=== PATIENT | female | born 1985 | race Caucasian/White ===

== ENCOUNTER 2023-01-19 11:20 | Outpatient (REF) | payer OTHER, SELFPAY ==
[2023-01-19 13:44] LABS: MANUAL DIFF FLAG NO
[2023-01-19 13:48] LABS: Basophils Percent Auto 0.3 % (0-2); Eosinophils Absolute Auto 0.1 X10*3/uL (0.0-0.4); Eosinophils Percent Auto 1.1 % (0-4); Hematocrit 37.9 % (37.0-47.0); Hemoglobin 12.5 g/dl (12.0-16.0); Imm Gran Abs Auto 0.02 X10*3/uL (0.00-0.03); Imm Gran Pct Auto 0.3 % (0.0-0.4); Lymphocytes Absolute Auto 1.5 X10*3/uL (1.2-4.9); Lymphocytes Percent Auto 21.2 % (20-40); Mean Corpuscular Hemoglobin 28.5 pg (27.0-33.0); Mean Corpuscular Volume 86.5 fL (80.0-98.0); Mean Platelet Volume 12.4 fL (9.4-12.3); Monocytes Percent Auto 13.4 % (2-11); Neutrophils Absolute Auto 4.6 x10*3/uL (2.0-8.3); Neutrophils Percent Auto 63.7 % (45-73); Platelet Count 237 X10*3/uL (160-400); Red Blood Count 4.38 X10*6/uL (4.20-5.50); Red Cell Distribution Width 12.4 % (11.0-16.0); White Blood Count 7.2 X10*3/uL (4.8-10.8)
[2023-01-19 13:51] LABS: Appearance Urine Clear; Color Urine Yellow; Glucose Urine UA Negative (Negative); Leukocyte Esterase Urine Trace (Negative); Nitrite Urine Negative (Negative); Specific Gravity - Urine 1.015 (1.005-1.025); UMIC TRIGGER UA YES; Urine Blood Negative (Negative); Urine Ketones Negative (Negative); Urine Protein Negative (Neg-Trace)
[2023-01-19 13:53] LABS: Bacteria Urine None Seen (None Seen); Hyaline Casts Urine 0-2 /LPF (0-2); RBC Urine 0-2 /HPF (0-2); WBC Urine 0-5 /HPF (0-5)
[2023-01-19 14:01] LABS: Estimated Average Glucose 103 mg/dL; Hemoglobin A1c % 5.2 %
[2023-01-19 14:06] LABS: Alanine Aminotransferase 40 U/L (0-31); Albumin Level 3.8 g/dL (3.5-5.0); Alkaline Phosphatase 96 U/L (39-117); Anion Gap 12 (12-20); Aspartate Amino Transferase 31 U/L (5-31); Bilirubin Total 0.6 mg/dL (0.0-1.0); Blood Urea Nitrogen 11 mg/dL (9-16); Calcium 9.6 mg/dL (8.4-10.2); Carbon Dioxide 26 mmol/L (22-29); Chloride 106 mmol/L (96-108); Cholesterol 116 mg/dL; Estimated Glomerular Filt Rate > 60; Glucose Fasting 96 mg/dL (60-99); HDL Cholesterol 55 mg/dL; LDL Cholesterol Calculated 50 mg/dl; Potassium 4.6 mmol/L (3.3-5.1); Sodium 139 mmol/L (135-145); Total Protein 6.9 g/dL (6.5-8.0); Triglycerides 56 mg/dL
[2023-01-19 14:24] LABS: Insulin 7 uU/mL (2-29); TSH reflex Free T4 < 0.01 uIU/mL (0.32-4.0)
[2023-01-19 14:58] LABS: Free T4 (Free Thyroxine) 2.63 ng/dL (0.71-1.85)
== END 2023-01-19 11:21 | disposition home or self-care (01) ==
LOC: HO.HMGCLDS 11:20
PROVIDERS: PCP Internal Medicine; Visit Provider Internal Medicine
DX: E16.2 Hypoglycemia, unspecified (principal); R19.00 Intra-abdominal and pelvic swelling, mass and lump, unspecified site
CPT/HCPCS: 36415; 80053; 80061; 81001; 83036; 83525; 84439; 84443; 85025

== ENCOUNTER 2023-01-26 08:32 | Outpatient (REF) | payer OTHER, SELFPAY ==
--- NOTE | ~2023-01-26 | US_ITS ---
EXAMINATION: US RETROPERITONEAL LIMITED (AORTA) CLINICAL INFORMATION: Pulsatile mass. COMPARISON: None available. TECHNIQUE: Veras-scale, color Doppler and spectral Doppler evaluation of the abdominal aorta. FINDINGS: The aorta is normal. The measurements of the aorta in maximum AP and transverse dimensions respectively are as follows: Proximal: 2.0 x 2.0 cm. Mid: 1.7 x 1.9 cm. Distal: 1.4 x 1.6 cm. PSV: 154 cm/s. The measurements of the common iliac arteries in maximum AP and TRV dimensions are as follows: Right Common Iliac Artery: 1.0 x 1.1 cm. Left Common Iliac Artery: 0.9 x 1.0 cm. US/US abdominal aortic aneurysm IMPRESSION: Negative for abdominal aortic aneurysm.
== END 2023-01-26 08:33 | disposition home or self-care (01) ==
LOC: HO.HMGCX 08:32
PROVIDERS: PCP Internal Medicine; Visit Provider Internal Medicine
DX: R19.00 Intra-abdominal and pelvic swelling, mass and lump, unspecified site (principal)
CPT/HCPCS: 76706

== ENCOUNTER → 2023-02-17 08:33 | Outpatient (BNVA) | payer OTHER, SELFPAY | PROVIDERS: PCP Internal Medicine; Visit Provider Internal Medicine ==

== ENCOUNTER 2023-03-02 09:41 | Outpatient (REF) | payer OTHER, SELFPAY ==
[2023-03-02 11:45] LABS: Alanine Aminotransferase 44 U/L (0-31); Albumin Level 3.9 g/dL (3.5-5.0); Alkaline Phosphatase 130 U/L (39-117); Aspartate Amino Transferase 36 U/L (5-31); Bilirubin Direct 0.2 mg/dL (0.0-0.5); Bilirubin Total 0.5 mg/dL (0.0-1.0); Total Protein 7.8 g/dL (6.5-8.0)
[2023-03-02 11:55] LABS: Free T4 (Free Thyroxine) 2.27 ng/dL (0.71-1.85); Thyroid Stimulating Hormone < 0.01 uIU/mL (0.32-4.0)
[2023-03-04 06:03] LABS: Triiodothyronine T3 Total 384 ng/dL (76-181)
[2023-03-04 13:13] LABS: Thyroglobulin Antibodies 3 IU/mL (< or = 1); Thyroid Peroxidase Antibodies 187 IU/mL (<9)
[2023-03-08 14:52] LABS: Thyrotropin Receptor Antibody 18.31 IU/L (<=2.00)
[2023-03-09 14:22] LABS: Thyroid Stimulating Immunoglob 222 % baseline (<140)
== END 2023-03-02 09:42 | disposition home or self-care (01) ==
LOC: HO.HMGCLDS 09:41
PROVIDERS: PCP Internal Medicine; Visit Provider Internal Medicine
DX: E05.90 Thyrotoxicosis, unspecified without thyrotoxic crisis or storm (principal)
CPT/HCPCS: 36415; 80076; 83520; 84439; 84443; 84445; 84480; 86376; 86800

== ENCOUNTER 2023-03-09 11:29 | Outpatient (REF) | payer OTHER, SELFPAY ==
--- NOTE | ~2023-03-09 | US_ITS ---
EXAMINATION: US THYROID CLINICAL INFORMATION: Thyrotoxicosis, unspecified without thyrotoxic crisis or storm. COMPARISON: None available. TECHNIQUE: Linear transducer grayscale and color Doppler examination with attention to the region of the thyroid. FINDINGS: SIZE: Measurements of the thyroid lobes and nodules are given in sagittal, anteroposterior and transverse dimensions respectively. Right Thyroid Lobe: 5.6 x 2.5 x 2.0 cm, volume 14.0 mL. Parenchyma: The gland echotexture is heterogeneous. Thyroid vascularity is increased. Left Thyroid Lobe: 5.0 x 2.3 x 2.0 cm, volume 11.7 mL. Parenchyma: The gland echotexture is heterogeneous. Thyroid vascularity is increased. Isthmus: 0.45 cm in maximum AP dimension. No focal thyroid nodule is seen. NODES: No lymphadenopathy is seen in the tissue surrounding the thyroid gland. US/US thyroid IMPRESSION: Heterogeneous enlarged hypervascular thyroid gland. No significant thyroid nodule. ACR TI-RADS RECOMMENDATION REFERENCE: Ultrasound-guided fine-needle aspiration, followup ultrasound, no further follow up. * TR1 (0 point) and TR2 (2 points): No FNA or follow up. * TR3 (3 points): FNA if more than or equal to 2.5 cm in maximum dimension, followup ultrasound in 1, 3 and 5 years if 1.5 to 2.4 cm in maximum dimension. * TR4 (4-6 points): FNA if more than or equal to 1.5 cm in maximum dimension, followup ultrasound in 1, 2, 3 and 5 years if 1 to 1.4 cm in maximum dimension. * TR5 (more than or equal to 7 points): FNA if more than or equal to 1 cm in maximum dimension, followup ultrasound every year for 5 years if 0.5 to 0.9 cm in maximum dimension. * TR3, TR4 or TR5 nodules that are below the size threshold for followup receive no follow up.
== END 2023-03-09 11:30 | disposition home or self-care (01) ==
LOC: HO.HMGCX 11:29
PROVIDERS: PCP Internal Medicine; Visit Provider Internal Medicine
DX: E05.90 Thyrotoxicosis, unspecified without thyrotoxic crisis or storm (principal)
CPT/HCPCS: 76536

== ENCOUNTER → 2023-03-23 09:37 | Outpatient (REF) | payer OTHER, SELFPAY ==
--- NOTE | ~2023-03-23 | NM_ITS ---
EXAMINATION: THYROID UPTAKE AND SCAN CLINICAL INFORMATION: Thyrotoxicosis, unspecified without thyrotoxic crisis or storm. TSH less than 0.01. COMPARISON: Thyroid ultrasound done on 03/09/2023. TECHNIQUE: Following the oral administration of 292 microcuries of I-123 sodium iodide, thyroid uptake was performed and expressed as a percentage of the administrated dose. Gamma scintillation camera images of the thyroid in the anterior and right and left anterior oblique views were obtained using a pinhole collimator following intravenous administration of 10 mCi Tc-99m pertechnetate. The radiotracer was injected through left antecubital superficial vein without complications. FINDINGS: The uptake is 64.6% at 4 hours and 98.3% at 24 hours (Normal radioiodine uptake at 24 hours is 10% to 30%). The radioiodine uptake is markedly abnormally high. The radiopertechnetate thyroid scintigram demonstrates the thyroid gland to be abnormally enlarged, normal in shape and position. There is homogenous diffuse radiotracer activity identified throughout the entire thyroid gland without evidence of any superimposed focal hot or cold or isointense nodules. The trapping function is normal. NM/NM thyroid w uptake IMPRESSION: 1. Markedly abnormally high radioiodine uptake of 64.6% at 4 hours and 98.3% at 24 hours, consistent with hyperfunctioning gland. 2. The thyroid gland is abnormally enlarged, shows diffuse radiotracer activity, morphologically consistent with Graves' disease. 3. No scintigraphic evidence of any superimposed thyroid nodules on either side.
== END ==
LOC: HO.NUCMED 09:37
PROVIDERS: PCP Internal Medicine; Visit Provider Internal Medicine
DX: E05.90 Thyrotoxicosis, unspecified without thyrotoxic crisis or storm (principal)
CPT/HCPCS: 78014; A9512; A9516

== ENCOUNTER 2023-04-17 09:40 | Outpatient (REF) | payer OTHER, SELFPAY ==
[2023-04-17 12:58] LABS: Free T4 (Free Thyroxine) 1.21 ng/dL (0.71-1.85)
[2023-04-18 06:04] LABS: Triiodothyronine T3 Total 185 ng/dL (76-181)
== END 2023-04-17 09:41 | disposition home or self-care (01) ==
LOC: HO.HMGCLDS 09:40
PROVIDERS: PCP Internal Medicine; Visit Provider Internal Medicine
DX: E05.90 Thyrotoxicosis, unspecified without thyrotoxic crisis or storm (principal)
CPT/HCPCS: 36415; 84439; 84480

== ENCOUNTER 2023-05-04 12:08 | Outpatient (AMB) | payer OTHER, SELFPAY ==
--- NOTE | 2023-05-04 12:11 | MHC.OFFVIS ---
Intake Intake Visit Reasons: med allergic reaction Allergies No Known Allergies Allergy (Verified 05/04/23 12:11) Medication List - Last Reconciled 05/04/23 by Caity Aldana DO methimazole 10 mg PO TID 30 days HPI HPI Comments History of Present Illness Details 37 YO Female with no significant PMHx who is seen in F/U for Grave's disease. She had labs assessed which revealed a suppressed TSH and elevated FT4. All antibodies positive. Uptake and scan markedly increased. She was started on methimazole which was titrated upwards to 10 mg PO TID. She subsequently developed a pink micropapular rash covering her chest. She reports tremors, occasional palpitations, but otherwise denies symptoms of hyperthyroidism. She has no known history of thyroid disease. She denies any family history of thyroid disease. She denies any menstrual irregularities. She denies any tenderness in the neck. Labs: Laboratory Tests 01/19/23 11:30 TSH < 0.01 L Free T4 2.63 H PFSH Surgical History Hx of eye surgery Family History Father Sudden of unknown etiology, Onset Age: 59 Mother No problems noted. Social History Household Members Other:: , 2 children, from 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 She has developed a diffuse rash to the methimazole so I will stop this. There can be significant cross reactivity with PTU, and given that her LFTs were elevated at the time of diagnosis I am hesitant to start PTU at this time. I have advised her to stop the methimazole entirely to see if the rash resolves. I advise I131 ablation of the thyroid. US reveals no significant goiter. She is refusing at this time. Also refusing a surgical thyroidectomy. She states she wishes to try blood root extract to see if this can control her hyperthyroidism. I advised against this and we did discuss that without treatment for her hyperthyroidism she may develop an arrhyhmia which can lead to a stroke. She verbalizes understanding but is refusing all treatment at this time. She states she wishes to follow up with dr gallegos in 2 weeks time to repeat lab work. I have messaged the amphibious operations officer Jessica Smith as well as PROPERTY MAINTENANCE TECHNICIAN of specialty care Rabia Francoy and advised them that this patient is thyrotoxic and must be monitored closely. I advised that she be scheduled with Nain Gallegos the covering physician no longer than 2 weeks from now as I will no longer be present at this practice. They have verbalized understanding. All of her questions were answeed. She is in agreement with this plan of care. I spent 20 minutes in reviewing the record, seeing the patient and documenting in the medical record, including 5 minutes on the phone with the patient. Telehealth Telehealth Location of provider rendering services: practice address Location of patient: address on file Patient Identification confirmed using: Name, : Yes Telehealth method: voice only Patient verbally consented to treatment: Yes Patient verbally consented to billing insurance company: Yes Patient informed of any privacy concerns related to visit: Yes Coding Level of Care Code Tele Est Pt Level 3 (41013) Diagnoses Hyperthyroidism E05.90
== END 2023-05-04 13:36 | disposition home or self-care (01) ==
PROVIDERS: PCP Internal Medicine; Visit Provider Internal Medicine
DX: E05.90 Thyrotoxicosis, unspecified without thyrotoxic crisis or storm (principal)
CPT/HCPCS: 99213

== ENCOUNTER → 2023-05-04 12:08 | Outpatient (BNVA) | payer OTHER, SELFPAY | PROVIDERS: PCP Internal Medicine; Visit Provider Internal Medicine ==

== ENCOUNTER 2023-05-11 08:04 | Outpatient (AMB) | payer OTHER, SELFPAY ==
--- NOTE | 2023-05-11 08:15 | MHC.OFFVIS ---
Intake Vital Signs 05/11/23 08:16 Height 5 ft 2 in Weight 122 lb 5.705 oz BMI 22.4 BP 104/66 Blood Pressure Location Lt brachial Position Sitting Pulse 80 Intake Visit Reasons: F/u medication reaction per Stormy Intake Note: Patient present for medication reaction office visit. Ct Manager Required: No Accompanied by: Self / Same As Patient Allergies methimazole Allergy (Mild, Verified 05/11/23 08:23) Rash HPI HPI Comments History of Present Illness Details 37 YO Female with no significant PMHx who is seen in F/U for Grave's disease. Patient last saw Dr. Cardenas on She had labs assessed which revealed a suppressed TSH and elevated FT4. All antibodies positive. Uptake and scan markedly increased. She was started on methimazole which was titrated upwards to 10 mg PO TID. She subsequently developed a pink micropapular rash covering her chest. She subsequently stop the methimazole. Started methimazole 5 wks. Took 20 mg QD without problems then increased 30 mg QD developed rash She denies tremors, occasional palpitations, but otherwise denies symptoms of hyperthyroidism. She has no known history of thyroid disease. She denies any family history of thyroid disease. She denies any menstrual irregularities. She denies any tenderness in the neck. Labs: Laboratory Tests 01/19/23 11:30 TSH < 0.01 L Free T4 2.63 H [facility] Surgical History Hx of eye surgery Family History Father Sudden of unknown etiology, Onset Age: 59 Mother No problems noted. 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 There are no thyroid nodules palpated. There is no tremor present. Reflexes 2+ DTR Assessment & Plan Assessment & Plan (1) Hyperthyroidism: Code(s): E05.90 - Thyrotoxicosis, unspecified without thyrotoxic crisis or storm Plan: This 37-year-old white female with a history of hyperthyroidism due to Graves disease we developed a rash on methimazole. She appears to be clinically euthyroid of present Plan is discuss options of treatment with the patient including resumption of methimazole verses PTU versus radioactive iodine versus surgery. The risk and benefits of each option were discussed with the patient in detail. Patient states she wants to try naturopathic medication for 4 weeks prior to resuming anti-thyroid medication if necessary. I did tell her there is no clinical trials or scientific data backing up doing this. We will recheck thyroid function studies in 4 weeks time and if still hyperthyroid, will resume methimazole at 20 mg or switch to PTU. She is not interested radioactive iodine or surgery at the present time. I also told her that she experiences recurrence of symptoms of hyperthyroidism to get a blood work done sooner and contact me so that we can start anti-thyroid medications sooner. Orders: Orders Free T4 (Free Thyroxine) 4 Weeks E05.90 - Thyrotoxicosis, unspecified without thyrotoxic crisis or storm Triiodothyronine T3 Free 4 Weeks E05.90 - Thyrotoxicosis, unspecified without thyrotoxic crisis or storm Thyroid Stimulating Hormone 4 Weeks E05.90 - Thyrotoxicosis, unspecified without thyrotoxic crisis or storm Coding Level of Care Code Est Pt Level 3 (84713) Diagnoses Hyperthyroidism E05.90
[2023-05-11 08:16] VITALS: BP 104/66; PULSE 80; BMI 22.4
== END 2023-05-11 09:22 | disposition home or self-care (01) ==
PROVIDERS: PCP Internal Medicine; Visit Provider Internal Medicine Endocrinology, Diabetes & Metabolism
DX: E05.90 Thyrotoxicosis, unspecified without thyrotoxic crisis or storm (principal)
CPT/HCPCS: 99213

== ENCOUNTER → 2023-05-11 08:04 | Outpatient (BNVA) | payer OTHER, SELFPAY | PROVIDERS: PCP Internal Medicine; Visit Provider Internal Medicine Endocrinology, Diabetes & Metabolism ==

== ENCOUNTER 2023-05-15 07:29 | Outpatient (AMB) | payer OTHER, SELFPAY ==
[2023-05-15 07:30] VITALS: BP 110/64; PULSE 80; O2SAT 98
--- NOTE | 2023-05-15 07:30 | A.OFFPC_ITS ---
Vital Signs 05/15/23 07:30 Height 5 ft 2 in BP 110/64 Blood Pressure Location Rt brachial Position Sitting Pulse 80 Pulse Source Pulse Oximeter Pulse Oximetry (%) 98 Intake Visit Reasons: Annual PE Intake Note: pt is here for annual physical, concerns with rash on forearms after being in garden over a week ago Play Writer Required: No Accompanied by: Self / Same As Patient Allergies methimazole Allergy (Mild, Verified 05/15/23 07:31) Rash Tobacco use date assessed: 01/19/23 Dental Screening Dental Screen Date: 05/15/23 Did you have a dental visit in the last 12 months?: Yes Did you have a dental problem in the last 6 months where you did not have access to dental care?: No Was dental information given to patient?: Patient has dentist HPI Annual PE HPI Details Pt presents for PE. Patient follows up with mobile health vehicle operator for hypothyroidism. She developed rash from 30 mg of methimazole and started taking a natural supplement 1 week ago. She will follow-up in 1 month for blood test with Dr. Gallegos. [facility] Surgical History Hx of eye surgery Family History Father Sudden of unknown etiology, Onset Age: 59 Mother No problems noted. 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 Russ Cox, Arabella Page, Kolton Shen and colleagues, with an educational melba from [employer]. Review of Systems Const All systems reviewed & are unremarkable except as noted in HPI and below Reports no additional complaints Eyes Reports no additional complaints ENT Reports no additional complaints Card Reports no additional complaints Resp Reports no additional complaints GI Reports no additional complaints Reports no additional complaints Physical exam (Primary Care) Vital Signs: Last Vital Signs Pulse 80 05/15/23 07:30 BP 110/64 05/15/23 07:30 Pulse Ox 98 05/15/23 07:30 Tobacco/Smoking Status: Tobacco use Status Tobacco use date assessed 01/19/23 05/15/23 07:32 Patient Tobacco Use Status Never used Tobacco 05/15/23 07:32 e-Cigarette/Vaping Use Never Used 05/15/23 07:32 Thrive Assessment: Date of Thrive Assessment Date Thrive assessed 01/19/23 05/15/23 07:32 Const General: no acute distress HENMT Head: Yes normal to inspection Ears: hearing grossly normal bilaterally General nose exam: Normal external nose present Face and sinus: Yes normal facial exam Mouth: Normal oral and palatal mucosa present Throat: Yes posterior oropharynx normal Eyes General: appearance normal, both eyes and all related structures Neck Neck: Yes no lymphadenopathy and Yes supple Resp Effort & Inspection: normal respiratory effort Auscultation: clear to auscultation bilaterally Cardio Rhythm: regular rhythm Heart sounds: S1 normal heart sound present and S2 normal heart sound present GI Inspection: Yes normal to inspection Palpation (GI): Soft to palpation Percussion: Yes normal to percussion Auscultation: normal bowel sounds Assessment and Plan Assessment & Plan (1) Hyperthyroidism: Comment: Ismael dx, f/u Dr. Gallegos Code(s): E05.90 - Thyrotoxicosis, unspecified without thyrotoxic crisis or storm Plan: Follow-up with endocrinology (2) Annual physical exam: Code(s): Z00.00 - Encounter for general adult medical examination without abnormal findings Plan: Well-balanced diet regular physical activity discussed with the patient. She will schedule an appointment with her operations and intelligence assistant for Pap smear Coding Level of Care Code Est Pt Prev Care [id number]([id number]) Diagnoses Hyperthyroidism E05.90 Annual physical exam Z00.00
== END 2023-05-15 08:58 | disposition home or self-care (01) ==
PROVIDERS: Visit Provider Internal Medicine
DX: E05.90 Thyrotoxicosis, unspecified without thyrotoxic crisis or storm (principal); Z00.00 Encounter for general adult medical examination without abnormal findings
CPT/HCPCS: 99395

== ENCOUNTER 2023-06-15 09:04 | Outpatient (REF) | payer OTHER, SELFPAY ==
[2023-06-15 12:27] LABS: Free T4 (Free Thyroxine) 1.96 ng/dL (0.71-1.85); Thyroid Stimulating Hormone < 0.01 uIU/mL (0.32-4.0)
[2023-06-16 20:33] LABS: Triiodothyronine T3 Free 15.3 pg/mL (2.3-4.2)
== END 2023-06-15 09:05 | disposition home or self-care (01) ==
LOC: HO.HMGCLDS 09:04
PROVIDERS: PCP Internal Medicine; Visit Provider Internal Medicine Endocrinology, Diabetes & Metabolism
DX: E05.90 Thyrotoxicosis, unspecified without thyrotoxic crisis or storm (principal)
CPT/HCPCS: 36415; 84439; 84443; 84481

== ENCOUNTER 2023-09-01 07:56 | Outpatient (REF) | payer OTHER, SELFPAY ==
[2023-09-01 11:40] LABS: MANUAL DIFF FLAG NO
[2023-09-01 11:42] LABS: Basophils Percent Auto 0.7 % (0-2); Eosinophils Absolute Auto 0.3 X10*3/uL (0.0-0.4); Eosinophils Percent Auto 5.1 % (0-4); Hematocrit 37.7 % (37.0-47.0); Hemoglobin 12.6 g/dl (12.0-16.0); Imm Gran Abs Auto 0.01 X10*3/uL (0.00-0.03); Imm Gran Pct Auto 0.2 % (0.0-0.4); Lymphocytes Absolute Auto 2.4 X10*3/uL (1.2-4.9); Lymphocytes Percent Auto 43.8 % (20-40); Mean Corpuscular HGB Conc 33.4 g/dl (31.0-35.0); Mean Corpuscular Hemoglobin 29.4 pg (27.0-33.0); Mean Corpuscular Volume 87.9 fL (80.0-98.0); Mean Platelet Volume 12.1 fL (9.4-12.3); Monocytes Absolute Auto 0.4 X10*3/uL (0.1-1.2); Neutrophils Absolute Auto 2.3 x10*3/uL (2.0-8.3); Neutrophils Percent Auto 42.2 % (45-73); Platelet Count 189 X10*3/uL (160-400); Red Blood Count 4.29 X10*6/uL (4.20-5.50); Red Cell Distribution Width 13.4 % (11.0-16.0); White Blood Count 5.5 X10*3/uL (4.8-10.8)
[2023-09-01 12:12] LABS: Alanine Aminotransferase 18 U/L (0-31); Alkaline Phosphatase 127 U/L (39-117); Aspartate Amino Transferase 24 U/L (5-31); Bilirubin Direct 0.3 mg/dL (0.0-0.5); Bilirubin Total 0.7 mg/dL (0.0-1.0); Total Protein 7.3 g/dL (6.5-8.0)
[2023-09-01 12:33] LABS: Free T4 (Free Thyroxine) 0.55 ng/dL (0.71-1.85); Thyroid Stimulating Hormone 0.09 uIU/mL (0.32-4.0)
[2023-09-02 08:04] LABS: Triiodothyronine T3 Free 2.3 pg/mL (2.3-4.2)
== END 2023-09-01 07:57 | disposition home or self-care (01) ==
LOC: HO.HMGCLDS 07:56
PROVIDERS: PCP Internal Medicine; Visit Provider Internal Medicine Endocrinology, Diabetes & Metabolism
DX: E05.90 Thyrotoxicosis, unspecified without thyrotoxic crisis or storm (principal)
CPT/HCPCS: 36415; 80076; 84439; 84443; 84481; 85025

== ENCOUNTER 2023-10-16 08:12 | Outpatient (REF) | payer OTHER, SELFPAY ==
[2023-10-16 11:48] LABS: MANUAL DIFF FLAG NO
[2023-10-16 12:32] LABS: Basophils Percent Auto 0.5 % (0-2); Eosinophils Absolute Auto 0.3 X10*3/uL (0.0-0.4); Eosinophils Percent Auto 4.5 % (0-4); Hemoglobin 12.3 g/dl (12.0-16.0); Lymphocytes Absolute Auto 2.3 X10*3/uL (1.2-4.9); Lymphocytes Percent Auto 38.9 % (20-40); Mean Corpuscular HGB Conc 33.2 g/dl (31.0-35.0); Mean Corpuscular Hemoglobin 29.6 pg (27.0-33.0); Mean Corpuscular Volume 88.9 fL (80.0-98.0); Mean Platelet Volume 12.8 fL (9.4-12.3); Monocytes Absolute Auto 0.6 X10*3/uL (0.1-1.2); Monocytes Percent Auto 10.7 % (2-11); Neutrophils Absolute Auto 2.7 x10*3/uL (2.0-8.3); Neutrophils Percent Auto 45.4 % (45-73); Platelet Count 152 X10*3/uL (160-400); Red Blood Count 4.16 X10*6/uL (4.20-5.50); Red Cell Distribution Width 13.1 % (11.0-16.0)
[2023-10-16 12:50] LABS: Alanine Aminotransferase 10 U/L (0-31); Alkaline Phosphatase 105 U/L (39-117); Aspartate Amino Transferase 16 U/L (5-31); Bilirubin Direct 0.2 mg/dL (0.0-0.5); Bilirubin Total 0.4 mg/dL (0.0-1.0); Free T4 (Free Thyroxine) 0.92 ng/dL (0.71-1.85); Thyroid Stimulating Hormone 0.01 uIU/mL (0.32-4.0); Total Protein 7.3 g/dL (6.5-8.0)
[2023-10-17 07:48] LABS: Triiodothyronine T3 Free 3.6 pg/mL (2.3-4.2)
== END 2023-10-16 08:13 | disposition home or self-care (01) ==
LOC: HO.HMGCLDS 08:12
PROVIDERS: PCP Internal Medicine; Visit Provider Internal Medicine Endocrinology, Diabetes & Metabolism
DX: E05.90 Thyrotoxicosis, unspecified without thyrotoxic crisis or storm (principal)
CPT/HCPCS: 36415; 80076; 84439; 84443; 84481; 85025

== ENCOUNTER 2023-10-19 10:47 | Outpatient (AMB) | payer OTHER, SELFPAY ==
[2023-10-19 10:48] VITALS: BP 118/62; PULSE 72; BMI 25.2
--- NOTE | 2023-10-19 10:48 | MHC.OFFVIS ---
Intake Vital Signs 10/19/23 10:48 Height 5 ft 2 in Weight 137 lb 9.095 oz BMI 25.2 BP 118/62 Blood Pressure Location Lt brachial Position Sitting Pulse 72 Pulse Source Pulse Oximeter Intake Visit Reasons: Hyperthyroidism-confirmed Intake Note: Patient present today for Hyperthyroidism follow up visit. Golf Ball Molder Required: No Accompanied by: Self / Same As Patient Allergies methimazole Allergy (Mild, Verified 10/19/23 10:55) Rash HPI HPI Comments History of Present Illness Details 38 YO Female with no significant PMHx who is seen in F/U for Grave's disease. She had labs assessed which revealed a suppressed TSH and elevated FT4. All antibodies positive. Uptake and scan markedly increased. She was started on methimazole which was titrated upwards to 10 mg PO TID. She subsequently developed a pink micropapular rash covering her chest. She subsequently stop the methimazole. Started methimazole 5 wks. Took 20 mg QD without problems then increased 30 mg QD developed rash . She is currently on 10 mg of methimazole She denies tremors, occasional palpitations, but otherwise denies symptoms of hyperthyroidism. She has no known history of thyroid disease. She denies any family history of thyroid disease. She denies any menstrual irregularities. She denies any tenderness in the neck. Labs: Laboratory Tests 01/19/23 11:30 TSH < 0.01 L Free T4 2.63 H [facility] Surgical History Hx of eye surgery Family History Father Sudden of unknown etiology, Onset Age: 59 Mother No problems noted. 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 There are no thyroid nodules palpated. There is no tremor present. Reflexes 2+ DTR Assessment & Plan Assessment & Plan (1) Hyperthyroidism: Comment: Graves dx, f/u Dr. Gallegos Code(s): E0 - Thyrotoxicosis, unspecified without thyrotoxic crisis or storm Plan: This 38-year-old white female with a history of hyperthyroidism due to Graves disease . She appears to be clinically euthyroid of present on 10 mg of methimazole. Free T4 and free T3 are normal range but TSH remains slightly suppressed. She also has a slightly decreasing platelet count Plan is discuss options of treatment with the patient including resumption of methimazole verses PTU versus radioactive iodine versus surgery. The risk and benefits of each option were discussed with the patient in detail. She has not ready to have definitive therapy with surgery or radioactive iodine current. Would recheck CBC to ensure platelet count is not falling further as this can be an effect from methimazole. Will also recheck thyroid function studies, CBC and liver panel in 1 months to see if TSH recovers once patient is consistently taking the methimazole assuming platelet count stable Orders: Orders Thyroid Stimulating Hormone 4 Weeks E0 - Thyrotoxicosis, unspecified without thyrotoxic crisis or storm Liver Panel Today E05.90 - Thyrotoxicosis, unspecified without thyrotoxic crisis or storm Complete Blood Count Auto Diff 4 Weeks E05. - Thyrotoxicosis, unspecified without thyrotoxic crisis or storm Free T4 (Free Thyroxine) 4 Weeks E05.90 - Thyrotoxicosis, unspecified without thyrotoxic crisis or storm Triiodothyronine T3 Free 4 Weeks E05.90 - Thyrotoxicosis, unspecified without thyrotoxic crisis or storm Coding Level of Care Code Est Pt Level 3 (28076) Diagnoses Hyperthyroidism E05
== END 2023-10-19 11:28 | disposition home or self-care (01) ==
PROVIDERS: PCP Internal Medicine; Visit Provider Internal Medicine Endocrinology, Diabetes & Metabolism
DX: E05.90 Thyrotoxicosis, unspecified without thyrotoxic crisis or storm (principal)
CPT/HCPCS: 99213

== ENCOUNTER → 2023-10-19 10:47 | Outpatient (BNVA) | payer SELFPAY | PROVIDERS: PCP Internal Medicine; Visit Provider Internal Medicine Endocrinology, Diabetes & Metabolism ==

== ENCOUNTER 2023-10-23 07:43 | Outpatient (REF) | payer OTHER, SELFPAY ==
[2023-10-23 10:53] LABS: MANUAL DIFF FLAG NO
[2023-10-23 11:06] LABS: Basophils Percent Auto 0.4 % (0-2); Eosinophils Absolute Auto 0.3 X10*3/uL (0.0-0.4); Eosinophils Percent Auto 4.8 % (0-4); Hematocrit 38.1 % (37.0-47.0); Hemoglobin 12.5 g/dl (12.0-16.0); Imm Gran Abs Auto 0.02 X10*3/uL (0.00-0.03); Imm Gran Pct Auto 0.3 % (0.0-0.4); Lymphocytes Absolute Auto 2.3 X10*3/uL (1.2-4.9); Lymphocytes Percent Auto 33.9 % (20-40); Mean Corpuscular HGB Conc 32.8 g/dl (31.0-35.0); Mean Corpuscular Hemoglobin 29.6 pg (27.0-33.0); Mean Corpuscular Volume 90.1 fL (80.0-98.0); Mean Platelet Volume 12.3 fL (9.4-12.3); Monocytes Absolute Auto 0.7 X10*3/uL (0.1-1.2); Monocytes Percent Auto 9.7 % (2-11); Neutrophils Absolute Auto 3.5 x10*3/uL (2.0-8.3); Neutrophils Percent Auto 50.9 % (45-73); Platelet Count 181 X10*3/uL (160-400); Red Blood Count 4.23 X10*6/uL (4.20-5.50); Red Cell Distribution Width 12.9 % (11.0-16.0); White Blood Count 6.8 X10*3/uL (4.8-10.8)
[2023-10-23 11:20] LABS: Alanine Aminotransferase 12 U/L (0-31); Alkaline Phosphatase 104 U/L (39-117); Aspartate Amino Transferase 18 U/L (5-31); Bilirubin Direct 0.2 mg/dL (0.0-0.5); Bilirubin Total 0.3 mg/dL (0.0-1.0); Total Protein 7.3 g/dL (6.5-8.0)
== END 2023-10-23 07:44 | disposition home or self-care (01) ==
LOC: HO.HMGCLDS 07:43
PROVIDERS: PCP Internal Medicine; Visit Provider Internal Medicine Endocrinology, Diabetes & Metabolism
DX: E05.90 Thyrotoxicosis, unspecified without thyrotoxic crisis or storm (principal)
CPT/HCPCS: 36415; 80076; 85025

== ENCOUNTER 2023-11-23 10:20 | Outpatient (REF) | payer OTHER, SELFPAY ==
[2023-11-23 13:19] LABS: MANUAL DIFF FLAG NO
[2023-11-23 13:44] LABS: Basophils Percent Auto 0.5 % (0-2); Eosinophils Absolute Auto 0.3 X10*3/uL (0.0-0.4); Eosinophils Percent Auto 4.4 % (0-4); Hematocrit 36.3 % (37.0-47.0); Hemoglobin 12.3 g/dl (12.0-16.0); Imm Gran Abs Auto 0.01 X10*3/uL (0.00-0.03); Imm Gran Pct Auto 0.2 % (0.0-0.4); Lymphocytes Absolute Auto 1.9 X10*3/uL (1.2-4.9); Lymphocytes Percent Auto 32.5 % (20-40); Mean Corpuscular HGB Conc 33.9 g/dl (31.0-35.0); Mean Corpuscular Hemoglobin 30.4 pg (27.0-33.0); Mean Corpuscular Volume 89.6 fL (80.0-98.0); Mean Platelet Volume 12.7 fL (9.4-12.3); Monocytes Absolute Auto 0.6 X10*3/uL (0.1-1.2); Neutrophils Percent Auto 52.4 % (45-73); Platelet Count 161 X10*3/uL (160-400); Red Blood Count 4.05 X10*6/uL (4.20-5.50); Red Cell Distribution Width 12.3 % (11.0-16.0); White Blood Count 5.7 X10*3/uL (4.8-10.8)
[2023-11-23 14:21] LABS: Free T4 (Free Thyroxine) 1.07 ng/dL (0.71-1.85); Thyroid Stimulating Hormone < 0.01 uIU/mL (0.32-4.0)
[2023-11-24 08:59] LABS: Triiodothyronine T3 Free 4.3 pg/mL (2.3-4.2)
== END 2023-11-23 10:21 | disposition home or self-care (01) ==
LOC: HO.HMGCLDS 10:20
PROVIDERS: PCP Internal Medicine; Visit Provider Internal Medicine Endocrinology, Diabetes & Metabolism
DX: E05.90 Thyrotoxicosis, unspecified without thyrotoxic crisis or storm (principal)
CPT/HCPCS: 36415; 84439; 84443; 84481; 85025

== ENCOUNTER 2024-01-04 09:27 | Outpatient (REF) | payer OTHER, SELFPAY ==
[2024-01-04 10:17] LABS: MANUAL DIFF FLAG NO
[2024-01-04 10:32] LABS: Basophils Percent Auto 0.4 % (0-2); Eosinophils Absolute Auto 0.2 X10*3/uL (0.0-0.4); Eosinophils Percent Auto 3.2 % (0-4); Hematocrit 37.7 % (37.0-47.0); Hemoglobin 12.7 g/dl (12.0-16.0); Imm Gran Abs Auto 0.01 X10*3/uL (0.00-0.03); Imm Gran Pct Auto 0.2 % (0.0-0.4); Lymphocytes Absolute Auto 1.5 X10*3/uL (1.2-4.9); Lymphocytes Percent Auto 32.9 % (20-40); Mean Corpuscular HGB Conc 33.7 g/dl (31.0-35.0); Mean Corpuscular Hemoglobin 30.6 pg (27.0-33.0); Mean Corpuscular Volume 90.8 fL (80.0-98.0); Mean Platelet Volume 11.8 fL (9.4-12.3); Monocytes Absolute Auto 0.5 X10*3/uL (0.1-1.2); Monocytes Percent Auto 11.5 % (2-11); Neutrophils Absolute Auto 2.4 x10*3/uL (2.0-8.3); Neutrophils Percent Auto 51.8 % (45-73); Platelet Count 185 X10*3/uL (160-400); Red Blood Count 4.15 X10*6/uL (4.20-5.50); Red Cell Distribution Width 12.1 % (11.0-16.0); White Blood Count 4.7 X10*3/uL (4.8-10.8)
[2024-01-04 11:24] LABS: Alanine Aminotransferase 18 U/L (0-31); Albumin Level 4.2 g/dL (3.5-5.0); Alkaline Phosphatase 90 U/L (39-117); Aspartate Amino Transferase 19 U/L (5-31); Bilirubin Direct 0.2 mg/dL (0.0-0.5); Bilirubin Total 0.5 mg/dL (0.0-1.0); Total Protein 7.6 g/dL (6.5-8.0)
[2024-01-04 11:42] LABS: Free T4 (Free Thyroxine) 1.19 ng/dL (0.71-1.85); Thyroid Stimulating Hormone < 0.01 uIU/mL (0.32-4.0)
[2024-01-05 06:20] LABS: Triiodothyronine T3 Free 4.6 pg/mL (2.3-4.2)
== END 2024-01-04 09:28 | disposition home or self-care (01) ==
LOC: HO.HMGCLDS 09:27
PROVIDERS: PCP Internal Medicine; Visit Provider Internal Medicine Endocrinology, Diabetes & Metabolism
DX: E05.90 Thyrotoxicosis, unspecified without thyrotoxic crisis or storm (principal)
CPT/HCPCS: 36415; 80076; 84439; 84443; 84481; 85025

== ENCOUNTER 2024-02-12 07:57 | Outpatient (REF) | payer OTHER, SELFPAY ==
[2024-02-12 10:15] LABS: MANUAL DIFF FLAG NO
[2024-02-12 10:30] LABS: Basophils Percent Auto 0.5 % (0-2); Eosinophils Absolute Auto 0.3 X10*3/uL (0.0-0.4); Eosinophils Percent Auto 4.7 % (0-4); Hematocrit 38.4 % (37.0-47.0); Imm Gran Abs Auto 0.02 X10*3/uL (0.00-0.03); Imm Gran Pct Auto 0.3 % (0.0-0.4); Lymphocytes Absolute Auto 2.1 X10*3/uL (1.2-4.9); Lymphocytes Percent Auto 35.5 % (20-40); Mean Corpuscular HGB Conc 33.9 g/dl (31.0-35.0); Mean Corpuscular Hemoglobin 30.7 pg (27.0-33.0); Mean Corpuscular Volume 90.6 fL (80.0-98.0); Mean Platelet Volume 12.3 fL (9.4-12.3); Monocytes Absolute Auto 0.6 X10*3/uL (0.1-1.2); Monocytes Percent Auto 10.6 % (2-11); Neutrophils Absolute Auto 2.9 x10*3/uL (2.0-8.3); Neutrophils Percent Auto 48.4 % (45-73); Platelet Count 180 X10*3/uL (160-400); Red Blood Count 4.24 X10*6/uL (4.20-5.50); Red Cell Distribution Width 12.2 % (11.0-16.0)
[2024-02-12 11:05] LABS: Alanine Aminotransferase 17 U/L (0-31); Alkaline Phosphatase 83 U/L (39-117); Aspartate Amino Transferase 19 U/L (5-31); Bilirubin Direct 0.1 mg/dL (0.0-0.5); Bilirubin Total 0.3 mg/dL (0.0-1.0); Total Protein 7.2 g/dL (6.5-8.0)
[2024-02-12 11:07] LABS: Thyroid Stimulating Hormone < 0.01 uIU/mL (0.32-4.0)
[2024-02-13 10:59] LABS: Triiodothyronine T3 Free 4.5 pg/mL (2.3-4.2)
== END 2024-02-12 07:58 | disposition home or self-care (01) ==
LOC: HO.HMGCLDS 07:57
PROVIDERS: PCP Internal Medicine; Visit Provider Internal Medicine Endocrinology, Diabetes & Metabolism
DX: E05.90 Thyrotoxicosis, unspecified without thyrotoxic crisis or storm (principal)
CPT/HCPCS: 36415; 80076; 84439; 84443; 84481; 85025

== ENCOUNTER 2024-03-04 11:06 | Outpatient (AMB) | payer OTHER, SELFPAY ==
[2024-03-04 11:09] VITALS: BP 104/66; PULSE 91; BMI 24.6
--- NOTE | 2024-03-04 11:09 | MHC.OFFVIS ---
Vital Signs 03/04/24 11:09 Height 5 ft 2 in Weight 134 lb 7.712 oz BMI 24.6 BP 104/66 Blood Pressure Location Lt brachial Position Sitting Pulse 91 Pulse Source Pulse Oximeter Intake Visit Reasons: f/u Grave's Disease-lvm Intake Note: Patient presents today for Grave's Disease follow up visit. Jewelry Polisher Required: No Accompanied by: daughters Allergies methimazole Allergy (Mild, Verified 03/04/24 11:26) Rash Medication List - Last Reconciled 03/04/24 by Russ Gallegos MD methimazole 15 mg (1.5 x 10 mg) PO DAILY HPI Comments Details: 38 YO Female with no significant PMHx who is seen in F/U for Grave's disease. She had labs assessed which revealed a suppressed TSH and elevated FT4. All antibodies positive. Uptake and scan markedly increased. She was started on methimazole which was titrated upwards to 10 mg PO TID. She subsequently developed a pink micropapular rash covering her chest. She subsequently stop the methimazole. Started methimazole 5 wks. Took 20 mg QD without problems then increased 30 mg QD developed rash . She is currently on 15 mg of methimazole but was noncompliant with the methimazole. Now taking regularly for 2 wks She denies tremors, occasional palpitations, but otherwise denies symptoms of hyperthyroidism. She has no known history of thyroid disease. She denies any family history of thyroid disease. She denies any menstrual irregularities. She denies any tenderness in the neck. Labs: Laboratory Tests 01/19/23 11:30 TSH < 0.01 L Free T4 2.63 H [facility] Surgical History Hx of eye surgery Family History Father Sudden of unknown etiology, Onset Age: 59 Mother No problems noted. 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 There are no thyroid nodules palpated. There is no tremor present. Reflexes 2+ DTR Assessment & Plan Assessment & Plan (1) Hyperthyroidism: Comment: Ismael dx, f/u Dr. Gallegos Code(s): E0 - Thyrotoxicosis, unspecified without thyrotoxic crisis or storm Category: Medical Plan: This 38-year-old white female with a history of hyperthyroidism due to Graves disease . She appears to be clinically euthyroid of present on 15 mg of methimazole. She was not taking the methimazole regularly and continues to be biochemically hyperthyroid Plan is recheck thyroid function studies, liver enzymes and CBC about 2-3 weeks' time. We will then adjust the methimazole accordingly. Patient is moving out of [facility] and will follow up with an railway signal technician in [place]. I gave her the name of an railway signal technician in [facility] to follow-up with. We talked briefly about different options of therapy including use of radioactive iodine surgery but considering the patient is moving this would not be possible now Orders: Orders Complete Blood Count Auto Diff 3 Weeks E05.90 - Thyrotoxicosis, unspecified without thyrotoxic crisis or storm Free T4 (Free Thyroxine) 3 Weeks E05.90 - Thyrotoxicosis, unspecified without thyrotoxic crisis or storm Thyroid Stimulating Hormone 3 Weeks E05.90 - Thyrotoxicosis, unspecified without thyrotoxic crisis or storm Triiodothyronine T3 Free 3 Weeks E05.90 - Thyrotoxicosis, unspecified without thyrotoxic crisis or storm Liver Panel 3 Weeks E05.90 - Thyrotoxicosis, unspecified without thyrotoxic crisis or storm Coding Level of Care Code Est Pt Level 3 (16911) Diagnoses Hyperthyroidism E05.90
== END 2024-03-04 11:59 | disposition home or self-care (01) ==
PROVIDERS: PCP Internal Medicine; Visit Provider Internal Medicine Endocrinology, Diabetes & Metabolism
DX: E05.90 Thyrotoxicosis, unspecified without thyrotoxic crisis or storm (principal)
CPT/HCPCS: 99213

== ENCOUNTER → 2024-03-04 11:06 | Outpatient (BNVA) | payer OTHER, SELFPAY | PROVIDERS: PCP Internal Medicine; Visit Provider Internal Medicine Endocrinology, Diabetes & Metabolism ==

== ENCOUNTER 2024-03-14 10:49 | Outpatient (REF) | payer OTHER, SELFPAY ==
[2024-03-14 13:10] LABS: MANUAL DIFF FLAG NO
[2024-03-14 13:26] LABS: Basophils Percent Auto 0.4 % (0-2); Eosinophils Absolute Auto 0.1 X10*3/uL (0.0-0.4); Eosinophils Percent Auto 2.2 % (0-4); Hematocrit 36.9 % (37.0-47.0); Hemoglobin 12.5 g/dl (12.0-16.0); Imm Gran Abs Auto 0.01 X10*3/uL (0.00-0.03); Imm Gran Pct Auto 0.2 % (0.0-0.4); Lymphocytes Absolute Auto 1.9 X10*3/uL (1.2-4.9); Lymphocytes Percent Auto 33.6 % (20-40); Mean Corpuscular HGB Conc 33.9 g/dl (31.0-35.0); Mean Corpuscular Volume 88.7 fL (80.0-98.0); Mean Platelet Volume 12.9 fL (9.4-12.3); Monocytes Absolute Auto 0.6 X10*3/uL (0.1-1.2); Monocytes Percent Auto 11.1 % (2-11); Neutrophils Absolute Auto 2.9 x10*3/uL (2.0-8.3); Neutrophils Percent Auto 52.5 % (45-73); Platelet Count 162 X10*3/uL (160-400); Red Blood Count 4.16 X10*6/uL (4.20-5.50); Red Cell Distribution Width 12.2 % (11.0-16.0); White Blood Count 5.5 X10*3/uL (4.8-10.8)
[2024-03-14 13:51] LABS: Alanine Aminotransferase 15 U/L (0-31); Albumin Level 4.1 g/dL (3.5-5.0); Alkaline Phosphatase 81 U/L (39-117); Aspartate Amino Transferase 19 U/L (5-31); Bilirubin Direct 0.3 mg/dL (0.0-0.5); Bilirubin Total 0.7 mg/dL (0.0-1.0); Total Protein 7.2 g/dL (6.5-8.0)
[2024-03-14 14:05] LABS: Free T4 (Free Thyroxine) 0.97 ng/dL (0.71-1.85); Thyroid Stimulating Hormone < 0.01 uIU/mL (0.32-4.0)
[2024-03-15 19:48] LABS: Triiodothyronine T3 Free 3.3 pg/mL (2.3-4.2)
== END 2024-03-14 10:50 | disposition home or self-care (01) ==
LOC: HO.HMGCLDS 10:49
PROVIDERS: PCP Internal Medicine; Visit Provider Internal Medicine Endocrinology, Diabetes & Metabolism
DX: E05.90 Thyrotoxicosis, unspecified without thyrotoxic crisis or storm (principal)
CPT/HCPCS: 36415; 80076; 84439; 84443; 84481; 85025